=== PATIENT | female | born 1975 | race African-American/Black ===

== ENCOUNTER 2018-04-26 07:37 | Emergency (ER) | payer OTHER ==
[~2018-04-26] VITALS: Ht 160 cm; Wt 116.6 kg
[~2018-04-26 07:37] MED LIST: NEXIUM40 MG PO; PREDNISONE 20 M20 MG PO
[2018-04-26] MEDS ORDERED: BENADRYL25 MG PO (09:56)
[2018-04-26] MEDS ORDERED: PREDNISONE 20 M20 MG PO (09:56)
[2018-04-26] MEDS ORDERED: EPIPEN 2-P0.3 MG/0.3 IM (10:00)
[2018-04-26 10:52] VITALS: BP 117/63
== END 2018-04-26 10:53 | disposition home or self-care (01) ==
LOC: ER 07:37
DX: T78.40XA Allergy, unspecified, initial encounter (principal); K21.9 Gastro-esophageal reflux disease without esophagitis; Z91.013 Allergy to seafood; Z91.018 Allergy to other foods